=== PATIENT | female | born 1965 | race Caucasian/White ===

== ENCOUNTER → 2018-06-27 | Outpatient (CLI) | payer BC ==
[~2018-06-27] MED LIST: ALPHAGAN P10 ML OP; CIPRO500 MG PO; CIPROFLOXACIN500 M1 PO; EXCEDRIN MIGRA1 EAC1 PO; FISH OIL300 MG PO; FLAGYL500 MG PO; ONDANSETRON HCL4 M2 PO; PRILOSEC40 MG PO; VITAMIN D1000 UNI1 PO; ZOFRAN4 MG PO
--- NOTE | 2018-06-27 11:11 | 2DMMODE ---
[place] [address] 2 D/M-MODE ECHOCARDIOGRAM Name: PRABHUPAM L Room: [facility]#: [id number] Admission: 06/27/18 Attend Phys: Selena Gillespie, Discharge: Date of : 65 Date of Service: 06/27/18 1110 Report #: [id number] THIS REPORT FOR: //name// APPROVED REPORT Study performed: 06/27/2018 09:04:59 EXAM: Comprehensive 2D, Doppler, and color-flow Echocardiogram Patient Location: Out-Patient Status: routine BSA: 1.83 HR: 77 bpm BP: 120/80 mmHg Other Information Study Quality: Good Indications Cerebrovascular Disease 2D Dimensions LVEF(%): 62.81 (>50%) IVSd: 9.72 (7-11mm) LVOT Diam: 20.24 (18-24mm) LVDd: 45.30 mm PWd: 9.57 (7-11mm) Ascending Ao: 24.96 (22-36mm) LVDs: 29.97 (25-40mm) Aortic Root: 22.98 mm Ibrahim's LVEF: 62.81 % Volumes Left Atrial Volume (Systole) LA ESV Index: 16.60 mL/m2 Aortic Valve AoV Peak Jaspal.: 1.12 m/s AO Peak Gr.: 5.06 mmHg LVOT Max P.59 mmHg AO Mean Gr.: 2.84 mmHg LVOT Mean P.11 mmHg LVOT Max V: 0.80 m/s AO V2 VTI: 24.33 cm LVOT Mean V: 0.48 m/s MATTHEW (VTI): 2.18 cm2 LVOT V1 VTI: 16.48 cm Mitral Valve E/A Ratio: 1.38 MV Decel. Time: 188.55 [place] [address] 2 D/M-MODE ECHOCARDIOGRAM Name: PAM PELLETIER Room: [facility]#: [id number] Admission: 06/27/18 Attend Phys: Selena Gillespie, Discharge: Date of : 65 Date of Service: 06/27/18 1110 Report #: [id number] MV E Max Jaspal.: 0.64 m/s MV PHT: 54.68 ms MVA (PHT): 4.02 cm2 TDI E/Lateral E': 4.92 E/Medial E': 5.33 Medial E' Jaspal.: 0.12 m/s Lateral E' Jaspal.: 0.13 m/s Pulmonary Valve PV Peak Jaspal.: 0.82 m/s PV Peak Gr.: 2.68 mmHg Tricuspid Valve RAP Estimate: 5.00 mmHg TR Peak Gr.: 16.07 mmHg RVSP: 21.07 mmHg PA Pressure: 21.07 mmHg Left Ventricle The left ventricle is normal size. There is normal LV segmental wall motion. There is normal left ventricular wall thickness. Left ventricular systolic function is normal. The left ventricular ejection fraction is within the normal range. LVEF is 50-55%. The left ventricular diastolic function is normal. Right Ventricle The right ventricle is normal size. The right ventricular systolic function is normal. Atria The left atrium size is normal. The right atrium size is normal. Aortic Valve Mild aortic valve sclerosis. No aortic regurgitation is present. There is no aortic valvular stenosis. Mitral Valve The mitral valve is normal in structure. There is no mitral valve regurgitation noted. No evidence of mitral valve stenosis. Tricuspid Valve The tricuspid valve is normal in structure. Mild tricuspid regurgitation. Pulmonic Valve The pulmonary valve is normal in structure. [place] [address] 2 D/M-MODE ECHOCARDIOGRAM Name: PAM PELLETIER Jonny Room: [facility]#: [id number] Admission: 06/27/18 Attend Phys: Selena Gillespie, Discharge: Date of : 65 Date of Service: 06/27/18 1110 Report #: [id number] valvular regurgitation. Great Vessels The aortic root is normal in size. IVC is normal in size and collapses with >50% inspiration Pericardium There is no pericardial effusion. <Conclusion> The left ventricle is normal size. There is normal left ventricular wall thickness. Left ventricular systolic function is normal. The left ventricular ejection fraction is within the normal range. LVEF is 50-55%. The left ventricular diastolic function is normal. The right ventricle is normal size. The left atrium size is normal. Mild aortic valve sclerosis. No aortic regurgitation is present. There is no aortic valvular stenosis. The mitral valve is normal in structure. The tricuspid valve is normal in structure. Mild tricuspid regurgitation. IVC is normal in size and collapses with >50% inspiration There is no pericardial effusion. There is normal LV segmental wall motion. <ELECTRONICALLY SIGNED> By: Rene Mitchell MD, FACC 06/27/18 1110 09 111 Rene Mitchell MD, FACC /INF
== END ==
LOC: M.CRD 08:41
DX: I07.1 Rheumatic tricuspid insufficiency (principal); I35.8 Other nonrheumatic aortic valve disorders